=== PATIENT | male | born 1995 ===

== ENCOUNTER 2018-06-05 04:02 | Emergency (ER) | payer OTHER ==
[2018-06-05 04:40] VITALS: BMI 29.4
[2018-06-05 05:00] LABS: BASO # 0.1 K/uL (0.0-0.2); BASO % 0.8 % (0.0-2.0); EOS # 0.2 K/uL (0.0-0.7); EOS % 2.5 % (0.0-4.0); HEMOGLOBIN 15.3 g/dL (12.0-18.0); LYMPH # 2.4 K/uL (1.0-4.3); LYMPH % 32.3 % (20.0-40.0); MEAN CELL VOLUME 86.3 fl (80.0-94.0); MEAN CORPUSCULAR HEMOGLOBIN 28.9 pg (27.0-31.0); MEAN CORPUSCULAR HGB CONC 33.5 g/dL (33.0-37.0); MEAN PLATELET VOLUME 8.8 fl (7.2-11.7); MONO # 0.5 K/uL (0.0-0.8); MONO % 7.2 % (0.0-10.0); NEUT # 4.3 K/uL (1.8-7.0); NEUT % 57.2 % (50.0-75.0); RBC 5.31 Mil/uL (4.40-5.90); RED CELL DISTRIBUTION WIDTH 13.8 % (11.5-14.5); WHITE BLOOD COUNT 7.6 K/uL (4.8-10.8)
[2018-06-05 05:05] LABS: URINE BACTERIA RARE (<OCC); URINE BILIRUBIN NEGATIVE (NEGATIVE); URINE BLOOD NEGATIVE (NEGATIVE); URINE CLARITY SLIGHTY-CLOUDY (Clear); URINE COLOR YELLOW (YELLOW); URINE GLUCOSE (UA) NEG (NEGATIVE); URINE LEUKOCYTE ESTERASE NEG Leu/uL (Negative); URINE PROTEIN 30 mg/dL (NEGATIVE)
[2018-06-05 05:08] LABS: ALB/GLOB RATIO 1.5 (1.0-2.1); ALBUMIN 4.6 g/dL (3.5-5.0); ALT/SGPT 54 U/L (21-72); AST/SGOT 85 U/L (17-59); BLOOD UREA NITROGEN 18 mg/dl (9-20); CALCIUM 9.3 mg/dL (8.4-10.2); GFR NON-AFRICAN AMERICAN > 60; LIPASE 74 U/L (23-300)
--- NOTE | 2018-06-05 05:18 | ED PDOC ---
HPI: Abdomen <Eliseo Greene III - Last Filed: 06/05/18 07:09> Chief Complaint (Provider): Abdominal Pain History Per: Patient History/Exam Limitations: no limitations Onset/Duration Of Symptoms: Hrs (x2 [employer]) Current Symptoms Are (Timing): Still Present Additional Complaint(s): 23 year old male with pmHx of biliary colic, presents to ED with a complaint of right, upper abdominal pain ongoing for 2 hours prior to arrival. He denies nausea, vomiting, or radiation of pain. Patient states he took I buprofen with minimal relief and rates pain as 8/10. He additionally reports he had similar symptoms in the past, in which, he was diagnosed with renal colic at the time. PCP: none provided <Kenan Kay - Last Filed: 06/05/18 19:28> Time Seen by Provider: 06/05/18 04:24 Chief Complaint (Nursing): Abdominal Pain Past Medical History Vital Signs: Last Vital Signs Temp 97.6 F 06/05/18 06:25 Pulse 80 06/05/18 06:25 Resp 18 06/05/18 06:25 BP 113/62 06/05/18 06:25 Pulse Ox 98 06/05/18 06:25 <Eliseo Greene III - Last Filed: 06/05/18 07:09> Reviewed: Historical Data, Nursing Documentation, Vital Signs Vital Signs: Last Vital Signs Temp 98.0 F 06/05/18 04:40 Pulse 86 06/05/18 04:40 Resp 18 06/05/18 04:40 BP 121/74 06/05/18 04:40 Pulse Ox 98 06/05/18 04:40 - Medical History PMH: No Chronic Diseases Other PMH: biliary colic/ renal colic - Surgical History Surgical History: No Surg Hx - Family History Family History: States: Unknown Family Hx <Kenan Kay - Last Filed: 06/05/18 19:28> - Home Medications Home Medications: Ambulatory Orders Medication Instructions Recorded Ibuprofen [Motrin Tab] 800 mg PO Q8 PRN #10 tab 02/22/18 Ranitidine HCl [Zantac] 150 mg PO BID #20 tablet 06/05/18 - Allergies Allergies/Adverse Reactions: Allergies Allergy/AdvReac Type Severity Reaction Status Date / Time No Known Allergies Allergy Verified 02/22/18 02:58 Review of Systems ROS Statement: Except As Marked, All Systems Reviewed And Found Negative Gastrointestinal: Positive for: Abdominal Pain (upper right). Negative for: Nausea, Vomiting <Kenan Kay - Last Filed: 06/05/18 19:28> Physical Exam - Reviewed Nursing Documentation Reviewed: Yes Vital Signs Reviewed: Yes - Physical Exam Appears: Positive for: Non-toxic, No Acute Distress Head Exam: Positive for: ATRAUMATIC, NORMAL INSPECTION, NORMOCEPHALIC Skin: Positive for: Normal Color Eye Exam: Positive for: Normal appearance ENT: Positive for: Normal ENT Inspection Neck: Positive for: Normal Cardiovascular/Chest: Positive for: Regular Rate, Rhythm Respiratory: Positive for: Normal Breath Sounds. Negative for: Respiratory Distress Gastrointestinal/Abdominal: Positive for: Soft, Tenderness (mild RUQ) Back: Positive for: Normal Inspection. Negative for: L CVA Tenderness, R CVA Tenderness Extremity: Positive for: Normal ROM (upper/lower) Neurologic/Psych: Positive for: Alert, Oriented. Negative for: Motor/Sensory Deficits <Kenan Kay - Last Filed: 06/05/18 19:28> - Laboratory Results Result Diagrams: 06/05/18 04:57 06/05/18 04:57 <Eliseo Greene III - Last Filed: 06/05/18 07:09> - Laboratory Results Result Diagrams: 06/05/18 04:57 06/05/18 04:57 - ECG O2 Sat by Pulse Oximetry: 98 (RA) Pulse Ox Interpretation: Normal <Kenan Kay - Last Filed: 06/05/18 19:28> Medical Decision Making Medical Decision Making: Initial Impression: 23 year old male with RUQ tenderness. Initial Plan: * Labs * Pepcid 20mg IV * Toradol 30mg IV * US gallbladder Time: 0700 --Patient to be endorsed to Dr. Greene, pending US gallbladder. Scribe Attestation: Documented by Alida Werner, acting as a scribe for Kenan Kay MD. Provider Scribe Attestation: All medical record entries made by the Scribe were at my direction and personally dictated by me. I have reviewed the chart and agree that the record accurately reflects my personal performance of the history, physical exam, medical decision making, and the department course for this patient. I have also personally directed, reviewed, and agree with the discharge instructions and disposition. <Kenan Kay - Last Filed: 06/05/18 19:28> Disposition <Eliseo Greene III - Last Filed: 06/05/18 07:09> - Disposition Disposition: Transfer of Care Disposition Time: 07:00 Patient Signed Over To: Eliseo Greene III <Kenan Kay - Last Filed: 06/05/18 19:28> - Clinical Impression Clinical Impression: Gallbladder sludge, Abdominal pain - Disposition Referrals: formerly [facility] [Outside] Condition: STABLE Additional Instructions: See clinic and/or GI doctor for further testing. Return to ER for any worse or new symptoms. Prescriptions: Ranitidine HCl [Zantac] 150 mg PO BID #20 tablet Instructions: Acute Abdomen (Belly Pain), Adult (DC) Forms: [email or web address] / [employer] ([place]ese)
--- NOTE | 2018-06-05 07:11 | ED PDOC ---
- Laboratory Results Result Diagrams: 06/05/18 04:57 06/05/18 04:57 - ECG O2 Sat by Pulse Oximetry: 98 (RA) Pulse Ox Interpretation: Normal Medical Decision Making Medical Decision Makin Patient was endorsed by Dr. Kay, pending US. Accession No. : [id number] Patient Name / ID : BROOKE HILARIO / [id number] Exam Date : 06/05/2018 08:04:42 ( Approved ) Study Comment : Sex / Age : M / 23Y Creator : Juanito Parry MD Dictator : Juanito Parry MD Mixer Driver : [employer] Pay Clerk : Juanito Parry MD Approver2 : Report Date : 06/05/2018 09:50:26 My Comment : Date of service: 06/05/2018 HISTORY: RUQ pain COMPARISON: None. TECHNIQUE: Sonographic evaluation of the right upper quadrant of the abdomen. FINDINGS: LIVER: Measures 15.8 cm in length. Normal echogenicity of the liver parenchyma. No mass. No intrahepatic bile duct dilatation. GALLBLADDER: Unremarkable. Intraluminal gallbladder sludge present. No pericholecystic fluid collections or sonographic Alvarado sign COMMON BILE DUCT: Measures 6.7 mm. No stones. No dilatation. PANCREAS: Pancreas not visualized due to overlying bowel gas.. RIGHT KIDNEY: Measures 10.5 x 5.5 x 5.0 the the cm in length. Normal echogenicity. No calculus, mass, or hydronephrosis. AORTA: No aneurysmal dilatation. IVC: Unremarkable. OTHER FINDINGS: None . IMPRESSION: Intraluminal gallbladder sludge. No evidence of sonographic Alvarado sign. 930am patient improved, denies pain or nausea. KETURAH pereira zantac and followup GI/ clinic Scribe Attestation: Documented by [place], acting as a scribe for Eliseo Greene III, DO. Provider Scribe Attestation: All medical record entries made by the Scribe were at my direction and personally dictated by me. I have reviewed the chart and agree that the record accurately reflects my personal performance of the history, physical exam, medical decision making, and the department course for this patient. I have also personally directed, reviewed, and agree with the discharge instructions and disposition. Disposition - Clinical Impression Clinical Impression: Gallbladder sludge, Abdominal pain - POA Present On Arrival: None - Disposition Referrals: [facility] [Outside] Disposition: Routine/Home Disposition Time: 09:30 Condition: STABLE Additional Instructions: See clinic and/or GI doctor for further testing. Return to ER for any worse or new symptoms. Prescriptions: Ranitidine HCl [Zantac] 150 mg PO BID #20 tablet Instructions: Acute Abdomen (Belly Pain), Adult (DC) Forms: [employer] (Citizen Of [place])
--- NOTE | 2018-06-05 09:53 | US ---
Date of service: 06/05/2018 HISTORY: RUQ pain COMPARISON: None. TECHNIQUE: Sonographic evaluation of the right upper quadrant of the abdomen. FINDINGS: LIVER: Measures 15.8 cm in length. Normal echogenicity of the liver parenchyma. No mass. No intrahepatic bile duct dilatation. GALLBLADDER: Unremarkable. Intraluminal gallbladder sludge present. No pericholecystic fluid collections or sonographic Alvarado sign COMMON BILE DUCT: Measures 6.7 mm. No stones. No dilatation. PANCREAS: Pancreas not visualized due to overlying bowel gas.. RIGHT KIDNEY: Measures 10.5 x 5.5 x 5.0 the the cm in length. Normal echogenicity. No calculus, mass, or hydronephrosis. AORTA: No aneurysmal dilatation. IVC: Unremarkable. OTHER FINDINGS: None . IMPRESSION: Intraluminal gallbladder sludge. No evidence of sonographic Alvarado sign.
[2018-06-05 10:44] VITALS: BP 118/66; PULSE 76; RESP 16; TEMP 98.1
[2018-06-05 13:20] VITALS: O2SAT 98
== END 2018-06-05 10:40 | disposition home or self-care (01) ==
LOC: H.ER 04:02
DX: R10.11 Right upper quadrant pain (principal); K83.9 Disease of biliary tract, unspecified
CPT/HCPCS: 76705; 80053; 81003; 83690; 85025; 99284; J1885